=== PATIENT | female | born 1965 | race Caucasian/White ===

== ENCOUNTER → 2017-09-09 | Outpatient (CLI) | payer OTHER ==
[~2017-09-09] MED LIST: PHENERGAN25 MG/M1 PO; TRIBENZOR 10 MG1 TA1 PO
== END ==
LOC: MC.RAD 08-09 08:00
DX: Z12.31 Encounter for screening mammogram for malignant neoplasm of breast (principal)

== ENCOUNTER → 2018-08-17 | Outpatient (CLI) | payer BC | LOC: COL.RAD 10:10 | DX: M47.812 Spondylosis without myelopathy or radiculopathy, cervical region (principal); M48.02 Spinal stenosis, cervical region ==

== ENCOUNTER → 2020-12-09 | Outpatient (CLI) | payer BC | LOC: MC.RAD 10-21 16:30 | DX: Z12.31 Encounter for screening mammogram for malignant neoplasm of breast (principal) ==

== ENCOUNTER → 2024-04-06 | Outpatient (CLI) | payer BC | LOC: MC.RAD 10:09 | DX: Z12.31 Encounter for screening mammogram for malignant neoplasm of breast (principal) ==